=== PATIENT | male | born 1950 | race Caucasian/White ===

== ENCOUNTER 2017-10-07 03:36 | Emergency (ER) | payer MEDICARE ==
[2017-10-07 04:23] LABS: Basophils % (Auto) 0.3 % (0.0-1.8); Eosinophils % (Auto) 0.3 % (0.0-4.3); Hematocrit 43.8 % (35.5-45.6); Hemoglobin 14.5 gm/dl (11.8-15.2); Lymphocytes # (Auto) 1.8 K/mm3 (1.2-5.4); Lymphocytes % (Auto) 15.9 % (13.4-35.0); Mean Corpuscular HGB Conc 33 % (32-34); Mean Corpuscular Hemoglobin 30 pg (28-32); Mean Corpuscular Volume 91 fl (84-94); Monocytes # (Auto) 1.5 K/mm3 (0.0-0.8); Monocytes % (Auto) 13.5 % (0.0-7.3); Platelet Count 263 K/mm3 (140-440)
[2017-10-07 04:37] LABS: BUN/Creatinine Ratio 21; Blood Urea Nitrogen 15 mg/dL (9-20); Calcium 9.8 mg/dL (8.4-10.2); Hemolysis Index 12
[2017-10-07 04:43] LABS: Bilirubin,Urine NEG (Negative); Blood,Urine NEG (Negative); Color,Urine Yellow (Yellow); Nitrite,Urine NEG (Negative); Urobilinogen,Urine < 2.0 mg/dL (<2.0)
[2017-10-07 04:57] LABS: Amphetamine Screen,Urine PRESUMPTIVE NEGATIVE; Benzodiazepines Screen,Urine PRESUMPTIVE NEGATIVE; Cannabinoid Screen,Urine PRESUMPTIVE NEGATIVE; Cocaine Screen,Urine PRESUMPTIVE NEGATIVE; Methadone Screen,Urine PRESUMPTIVE NEGATIVE; Opiate Screen,Urine PRESUMPTIVE NEGATIVE
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
--- NOTE | 2017-10-07 06:19 | Cat Scan Report ---
FINAL REPORT EXAM: CT HEAD/BRAIN WO CON HISTORY: AMS TECHNIQUE: CT imaging acquired through the head without intravenous contrast. Transaxial reformations are provided. PRIORS: 03/14/2012 FINDINGS: The ventricles, cisterns and sulci are within normal limits. No intraparenchymal or extra-axial mass, hemorrhage, or mass effect. Valenzuela and white-matter differentiation is within normal limits for patient age. Normal spherical shape of the globes. No significant abnormality involving the imaged portions of the paranasal sinuses and mastoid air cells. No skull or facial fracture visualized. IMPRESSION: No acute intracranial abnormality.
--- NOTE | 2017-10-07 06:33 | Emergency Department Report ---
Blank Doc - Documentation Documentation: I was asked by my colleague, Dr. Coon, to follow-up on the patient's CT scan of the head. The sign out I got was that if the CT of the head is unremarkable with the patient is set up to do inpatient psychiatric treatment. The CT results do show no acute process. There is no bleed, shift, mass, ischemia.
--- NOTE | 2017-10-07 12:32 | Consultation ---
History of Present Illness - Reason for Consult Consult date: 10/07/17 Reason for consult: Mental Health Evaluation Requesting physician: DAMASO ROBERTS - Chief Complaint Chief complaint: "They are eating my brain" - History of Present Psychiatric Illness Patient is 67 years old [place] male presented to the ER stating that people are eating his brain. Today patient is calm, but anxious during the assessment. He stated that [place] people are eating his brain and yelling in his ear. He stated having this a problem for a "very long time." He stated that he was seeing a psychiatrist and took medication in the past. He stated that he cannot sleep because of the voices he hear. The patient was able to tell me his and his current address. He denies SI/HI's and VH's. He denies recreational drug use and alcohol consumption (etoh). Medications and Allergies Allergies Allergy/AdvReac Type Severity Reaction Status Date / Time No Known Allergies Allergy Unverified 10/07/17 03:55 Home Medications Medication Instructions Recorded Confirmed Last Taken Type No Known Home Medications [No 10/07/17 10/07/17 Unknown History Reported Home Medications] Past psychiatric history - Past Medical History Past Medical History: No medical history Past Surgical History: No surgical history - past Psychiatric treatment and history Psych: Psychosis psychiatric treatment history: Patient stated seeing a psychiatrist in the past. Denies a fam psy hx. - Social History Social history: lives with family Mental Status Exam - Vital signs Last Vital Signs Temp 98.6 F 10/07/17 07:35 Pulse 85 10/07/17 07:35 Resp 17 10/07/17 07:50 BP 134/86 10/07/17 07:35 Pulse Ox 99 10/07/17 07:50 - Exam Narrative exam: MSE: Appearance: calm, cooperative Behavior: regular eye contact Speech: regular rate and tone Mood: anxious Affect: congruent to mood Thought Process: tangential Thought Content: denies SI/HI's and VH's, delusional, paranoid Motor Activity: ambulatory Cognition: A/O x3 Insight: poor Judgment: poor Results Result Diagrams: 10/07/17 04:06 10/07/17 04:06 Abnormal lab results 10/07/17 10/07/17 10/07/17 Range/Units 04:06 04:06 04:25 WBC 11.1 H (4.5-11.0) K/mm3 RDW 13.0 L (13.2-15.2) % [place] % (Auto) 13.5 H (0.0-7.3) % [place] # 1.5 H (0.0-0.8) K/mm3 Seg Neutrophils # 7.8 H (1.8-7.7) K/mm3 Sodium 132 L (137-145) mmol/L Chloride 92.4 L (98-107) mmol/L Creatinine 0.7 L (0.8-1.5) mg/dL Glucose 326 H (75-100) mg/dL POC Glucose (70-105) Ur Specific [place] 1.036 H (1.003-1.030) 10/07/17 Range/Units 06:09 WBC (4.5-11.0) K/mm3 RDW (13.2-15.2) % [place] % (Auto) (0.0-7.3) % [place] # (0.0-0.8) K/mm3 Seg Neutrophils # (1.8-7.7) K/mm3 Sodium (137-145) mmol/L Chloride (98-107) mmol/L Creatinine (0.8-1.5) mg/dL Glucose (75-100) mg/dL POC Glucose 259 H (70-105) Ur Specific [place] (1.003-1.030) All other labs normal. Assessment and Plan Assessment and plan: Impression: Unspecified Psychosis. Today patient is calm, but anxious during the assessment. The patient experiencing perceptional disturbances DDx: Schizophrenia Paranoid Type Recommendation/Plan: Continue 1013 with placement to inpatient psy services. Start Zyprexa 5 mg PO HS for psychosis. Discusses the possible metabolic side effects of Zyprexa with patient.
[2017-10-08] MEDS ORDERED: GEODON IM ONE (08:04)
--- NOTE | 2017-10-08 19:07 | Progress Note ---
Subjective - Reason for Consult Reason for consult: Psych consult - Chief Complaint Chief complaint: 67 year old male. The patient continues to note that the others are trying to eat his brain. He is still making gestures towards his head when describing what others are doing to him. He denies any SI/HI. He notes that he is tolerating the medications and is patient waiting for inpt admission. Mental Status Exam - Vital signs Last Vital Signs Temp 98.1 F 10/08/17 07:20 Pulse 83 10/08/17 07:20 Resp 18 10/08/17 07:20 BP 153/100 10/08/17 07:20 Pulse Ox 97 10/08/17 07:20 - Exam Orientation: time, place, person Affect: normal Mood: anxious Thought content: delusions, paranoia Thought Process: Disorganized Perceptions: hallucinations Speech: other Concentration: distractible Motor activity: normal Level of consciousness: alert Memory: Intact Interaction: cooperative Assessment and Plan Assessment and Plan Assessment and plan: Impression: Unspecified Psychosis. Recommendation/Plan: Continue 1013 with placement to inpatient psy services. Continue Zyprexa 5 mg PO HS for psychosis.
[2017-10-08 23:02] VITALS: BP 142/77
== END 2017-10-08 23:04 ==
LOC: ED 03:36
DX: F23 Brief psychotic disorder (principal); F22 Delusional disorders
CPT/HCPCS: 36415; 70450; 80048; 80307; 81001; 82962; 83036; 85025; 93005; 93010; 96372; 99285; G0480; J3486; 80320; J1815

== ENCOUNTER 2018-07-18 15:52 | Emergency (ER) | payer MEDICARE ==
[2018-07-18 16:33] LABS: Bilirubin,Urine NEG (Negative); Blood,Urine NEG (Negative); Color,Urine Colorless (Yellow); Protein,Urine <15 mg/dL mg/dL (Negative); Urobilinogen,Urine < 2.0 mg/dL (<2.0); WBC,Urine < 1.0 /HPF (0.0-6.0)
[2018-07-18 16:35] LABS: Basophils # (Auto) 0.1 K/mm3 (0.0-0.1); Basophils % (Auto) 0.7 % (0.0-1.8); Eosinophils % (Auto) 0.5 % (0.0-4.3); Hematocrit 38.6 % (35.5-45.6); Hemoglobin 13.8 gm/dl (11.8-15.2); Lymphocytes # (Auto) 2.8 K/mm3 (1.2-5.4); Lymphocytes % (Auto) 27.6 % (13.4-35.0); Mean Corpuscular HGB Conc 36 % (32-34); Mean Corpuscular Hemoglobin 31 pg (28-32); Mean Corpuscular Volume 88 fl (84-94); Monocytes # (Auto) 0.9 K/mm3 (0.0-0.8); Platelet Count 258 K/mm3 (140-440); Red Cell Distribution Width 12.9 % (13.2-15.2)
[2018-07-18 16:46] LABS: Amphetamine Screen,Urine PRESUMPTIVE NEGATIVE; Benzodiazepines Screen,Urine PRESUMPTIVE NEGATIVE; Cannabinoid Screen,Urine PRESUMPTIVE NEGATIVE; Cocaine Screen,Urine PRESUMPTIVE NEGATIVE; Methadone Screen,Urine PRESUMPTIVE NEGATIVE; Opiate Screen,Urine PRESUMPTIVE NEGATIVE
[2018-07-18 16:57] LABS: BUN/Creatinine Ratio 12; Blood Urea Nitrogen 7 mg/dL (9-20); Calcium 9.1 mg/dL (8.4-10.2); Hemolysis Index 15
[2018-07-18] MEDS ORDERED: NACL 0.9% 1000 ML 1,000 ML IV ONE ×2 (17:47→19:27)
[2018-07-18] MEDS ORDERED: NORVASC PO ONE (18:04)
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
[2018-07-18 22:45] LABS: BUN/Creatinine Ratio 14; Blood Urea Nitrogen 7 mg/dL (9-20); Hemolysis Index 3
[2018-07-18] MEDS ORDERED: GLUCOPHAGE PO ONE ×2 (23:43→23:44)
[2018-07-18] MEDS ORDERED: K-DUR PO ONE (23:45)
[2018-07-19] MEDS: GLUCOPHAGE PO SCH ×2 (08:30→17:32)
[2018-07-19] MEDS ORDERED: NORVASC PO SCH (10:00)
[2018-07-19 20:47] VITALS: BP 141/92
== END 2018-07-19 21:35 ==
LOC: ED 15:52
DX: F23 Brief psychotic disorder (principal); I10 Essential (primary) hypertension; E11.9 Type 2 diabetes mellitus without complications
CPT/HCPCS: 36415; 80048; 80307; 81001; 82962; 85025; 93005; 93010; 99285; G0480; J7030; 80320

== ENCOUNTER 2018-10-30 21:23 | Emergency (ER) | payer MEDICARE ==
--- NOTE | 2018-10-30 22:12 | Emergency Department Report ---
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 Patient states that he has no suicidal or homicidal ideation. The patient states that he doesn't have a psychiatrist and denies taking any drugs. She denies being in any pain. - Related Data Home Medications Medication Instructions Recorded Confirmed Last Taken traZODone 600 mg PO HS 10/30/18 10/30/18 Unknown Allergies Allergy/AdvReac Type Severity Reaction Status Date / Time No Known Allergies Allergy Verified 07/18/18 15:58 ED Review of Systems ROS: Stated complaint: MH EVAL Other details as noted in HPI Constitutional: denies: chills, fever Eyes: denies: eye pain, eye discharge, vision change ENT: denies: ear pain, throat pain Respiratory: denies: cough, shortness of breath, wheezing Cardiovascular: denies: chest pain, palpitations Endocrine: no symptoms reported Gastrointestinal: denies: abdominal pain, nausea, diarrhea Genitourinary: denies: urgency, dysuria Musculoskeletal: denies: back pain, joint swelling, arthralgia Skin: denies: rash, lesions Neurological: denies: headache, weakness, paresthesias Psychiatric: as per HPI, auditory hallucinations. denies: anxiety, depression, homicidal thoughts, suicidal thoughts Hematological/Lymphatic: denies: easy bleeding, easy bruising ED Past Medical Hx - Past Medical History Hx Hypertension: Yes Hx Psychiatric Treatment: Yes (Paranoid) - Social History Smoking Status: Never Smoker Substance Use Type: None - Medications Home Medications: Home Medications Medication Instructions Recorded Confirmed Last Taken Type traZODone 600 mg PO 10/30/18 10/30/18 Unknown History ED Physical Exam - General Limitations: No Limitations General appearance: alert, in no apparent distress - Head Head exam: Present: atraumatic, normocephalic - Eye Eye exam: Present: normal appearance - ENT ENT exam: Present: mucous membranes moist - Neck Neck exam: Present: normal inspection - Respiratory Respiratory exam: Present: normal lung sounds bilaterally. Absent: respiratory distress - Cardiovascular Cardiovascular Exam: Present: regular rate, normal rhythm. Absent: systolic murmur, diastolic murmur, rubs, gallop - GI/Abdominal GI/Abdominal exam: Present: soft, normal bowel sounds - Rectal Rectal exam: Present: deferred - Extremities Exam Extremities exam: Present: normal inspection - Back Exam Back exam: Present: normal inspection - Neurological Exam Neurological exam: Present: alert, oriented X3 - Psychiatric Psychiatric exam: Present: agitated, other (audittory halucinations ) - Skin Skin exam: Present: warm, dry, intact, normal color. Absent: rash ED Course Vital Signs 10/30/18 10/30/18 10/31/18 21:41 21:51 03:57 Temperature 99.4 F 98.5 F 97.6 F Pulse Rate 89 86 72 Respiratory 18 18 18 Rate Blood Pressure 160/104 Blood Pressure 143/86 142/88 [Left] O2 Sat by Pulse 98 96 98 Oximetry ED Medical Decision Making - Lab Data Result diagrams: 10/30/18 22:00 10/30/18 23:48 Lab Results 10/30/18 10/30/18 10/30/18 Range/Units 22:00 22:00 22:00 WBC (4.5-11.0) K/mm3 RBC (3.65-5.03) M/mm3 Hgb (11.8-15.2) gm/dl Hct (35.5-45.6) % MCV (84-94) fl MCH (28-32) pg MCHC (32-34) % RDW (13.2-15.2) % Plt Count (140-440) K/mm3 Lymph % (Auto) (13.4-35.0) % Meagher % (Auto) (0.0-7.3) % Eos % (Auto) (0.0-4.3) % Baso % (Auto) (0.0-1.8) % Lymph # (1.2-5.4) K/mm3 Meagher # (0.0-0.8) K/mm3 Eos # (0.0-0.4) K/mm3 Baso # (0.0-0.1) K/mm3 Seg Neutrophils % (40.0-70.0) % Seg Neutrophils # (1.8-7.7) K/mm3 Sodium 128 L (137-145) mmol/L Potassium 3.7 (3.6-5.0) mmol/L Chloride 93.1 L (98-107) mmol/L Carbon Dioxide 21 L (22-30) mmol/L Anion Gap 18 mmol/L BUN 9 (9-20) mg/dL Creatinine 0.6 L (0.8-1.5) mg/dL Estimated GFR > 60 ml/min BUN/Creatinine Ratio 15 % Glucose 533 H* (75-100) mg/dL POC Glucose (70-105) Calcium 8.6 (8.4-10.2) mg/dL Urine Color (Yellow) Urine Turbidity (Clear) Urine pH (5.0-7.0) Ur Specific Mclean (1.003-1.030) Urine Protein (Negative) mg/dL Urine Glucose (UA) (Negative) mg/dL Urine Ketones (Negative) mg/dL Urine Blood (Negative) Urine Nitrite (Negative) Urine Bilirubin (Negative) Urine Urobilinogen (<2.0) mg/dL Ur Leukocyte Esterase (Negative) Urine WBC (Auto) (0.0-6.0) /HPF Urine RBC (Auto) (0.0-6.0) /HPF U Epithel Cells (Auto) (0-13.0) /HPF Urine Mucus /HPF Salicylates < 0.3 L (2.8-20.0) mg/dL Urine Opiates Screen Urine Methadone Screen Acetaminophen < 5.0 L (10.0-30.0) ug/mL Ur Barbiturates Screen Ur Phencyclidine Scrn Ur Amphetamines Screen U Benzodiazepines Scrn Urine Cocaine Screen U Marijuana (THC) Screen Drugs of Abuse Note Plasma/Serum Alcohol (0-0.07) % 10/30/18 10/30/18 10/30/18 Range/Units 22:00 22:00 22:46 WBC 7.1 (4.5-11.0) K/mm3 RBC 4.47 (3.65-5.03) M/mm3 Hgb 13.6 (11.8-15.2) gm/dl Hct 39.8 (35.5-45.6) % MCV 89 (84-94) fl MCH 30 (28-32) pg MCHC 34 (32-34) % RDW 12.6 L (13.2-15.2) % Plt Count 255 (140-440) K/mm3 Lymph % (Auto) 28.0 (13.4-35.0) % Meagher % (Auto) 13.3 H (0.0-7.3) % Eos % (Auto) 0.9 (0.0-4.3) % Baso % (Auto) 0.5 (0.0-1.8) % Lymph # 2.0 (1.2-5.4) K/mm3 Meagher # 0.9 H (0.0-0.8) K/mm3 Eos # 0.1 (0.0-0.4) K/mm3 Baso # 0.0 (0.0-0.1) K/mm3 Seg Neutrophils % 57.3 (40.0-70.0) % Seg Neutrophils # 4.0 (1.8-7.7) K/mm3 Sodium (137-145) mmol/L Potassium (3.6-5.0) mmol/L Chloride (98-107) mmol/L Carbon Dioxide (22-30) mmol/L Anion Gap mmol/L BUN (9-20) mg/dL Creatinine (0.8-1.5) mg/dL Estimated GFR ml/min BUN/Creatinine Ratio % Glucose (75-100) mg/dL POC Glucose (70-105) Calcium (8.4-10.2) mg/dL Urine Color Colorless (Yellow) Urine Turbidity Clear (Clear) Urine pH 7.0 (5.0-7.0) Ur Specific Mclean 1.029 (1.003-1.030) Urine Protein <15 mg/dl (Negative) mg/dL Urine Glucose (UA) >=500 (Negative) mg/dL Urine Ketones Tr (Negative) mg/dL Urine Blood Neg (Negative) Urine Nitrite Neg (Negative) Urine Bilirubin Neg (Negative) Urine Urobilinogen < 2.0 (<2.0) mg/dL Ur Leukocyte Esterase Neg (Negative) Urine WBC (Auto) < 1.0 (0.0-6.0) /HPF Urine RBC (Auto) 1.0 (0.0-6.0) /HPF U Epithel Cells (Auto) < 1.0 (0-13.0) /HPF Urine Mucus Few /HPF Salicylates (2.8-20.0) mg/dL Urine Opiates Screen Urine Methadone Screen Acetaminophen (10.0-30.0) ug/mL Ur Barbiturates Screen Ur Phencyclidine Scrn Ur Amphetamines Screen U Benzodiazepines Scrn Urine Cocaine Screen U Marijuana (THC) Screen Drugs of Abuse Note Plasma/Serum Alcohol < 0.01 (0-0.07) % 10/30/18 10/30/18 10/30/18 Range/Units 22:46 23:36 23:48 WBC (4.5-11.0) K/mm3 RBC (3.65-5.03) M/mm3 Hgb (11.8-15.2) gm/dl Hct (35.5-45.6) % MCV (84-94) fl MCH (28-32) pg MCHC (32-34) % RDW (13.2-15.2) % Plt Count (140-440) K/mm3 Lymph % (Auto) (13.4-35.0) % Meagher % (Auto) (0.0-7.3) % Eos % (Auto) (0.0-4.3) % Baso % (Auto) (0.0-1.8) % Lymph # (1.2-5.4) K/mm3 Meagher # (0.0-0.8) K/mm3 Eos # (0.0-0.4) K/mm3 Baso # (0.0-0.1) K/mm3 Seg Neutrophils % (40.0-70.0) % Seg Neutrophils # (1.8-7.7) K/mm3 Sodium (137-145) mmol/L Potassium (3.6-5.0) mmol/L Chloride (98-107) mmol/L Carbon Dioxide (22-30) mmol/L Anion Gap mmol/L BUN (9-20) mg/dL Creatinine (0.8-1.5) mg/dL Estimated GFR ml/min BUN/Creatinine Ratio % Glucose 304 H (75-100) mg/dL POC Glucose 347 H (70-105) Calcium (8.4-10.2) mg/dL Urine Color (Yellow) Urine Turbidity (Clear) Urine pH (5.0-7.0) Ur Specific Mclean (1.003-1.030) Urine Protein (Negative) mg/dL Urine Glucose (UA) (Negative) mg/dL Urine Ketones (Negative) mg/dL Urine Blood (Negative) Urine Nitrite (Negative) Urine Bilirubin (Negative) Urine Urobilinogen (<2.0) mg/dL Ur Leukocyte Esterase (Negative) Urine WBC (Auto) (0.0-6.0) /HPF Urine RBC (Auto) (0.0-6.0) /HPF U Epithel Cells (Auto) (0-13.0) /HPF Urine Mucus /HPF Salicylates (2.8-20.0) mg/dL Urine Opiates Screen Presumptive negative Urine Methadone Screen Presumptive negative Acetaminophen (10.0-30.0) ug/mL Ur Barbiturates Screen Presumptive negative Ur Phencyclidine Scrn Presumptive negative Ur Amphetamines Screen Presumptive negative U Benzodiazepines Scrn Presumptive negative Urine Cocaine Screen Presumptive negative U Marijuana (THC) Screen Presumptive negative Drugs of Abuse Note Disclamer Plasma/Serum Alcohol (0-0.07) % 10/31/18 Range/Units 02:25 WBC (4.5-11.0) K/mm3 RBC (3.65-5.03) M/mm3 Hgb (11.8-15.2) gm/dl Hct (35.5-45.6) % MCV (84-94) fl MCH (28-32) pg MCHC (32-34) % RDW (13.2-15.2) % Plt Count (140-440) K/mm3 Lymph % (Auto) (13.4-35.0) % Meagher % (Auto) (0.0-7.3) % Eos % (Auto) (0.0-4.3) % Baso % (Auto) (0.0-1.8) % Lymph # (1.2-5.4) K/mm3 Meagher # (0.0-0.8) K/mm3 Eos # (0.0-0.4) K/mm3 Baso # (0.0-0.1) K/mm3 Seg Neutrophils % (40.0-70.0) % Seg Neutrophils # (1.8-7.7) K/mm3 Sodium (137-145) mmol/L Potassium (3.6-5.0) mmol/L Chloride (98-107) mmol/L Carbon Dioxide (22-30) mmol/L Anion Gap mmol/L BUN (9-20) mg/dL Creatinine (0.8-1.5) mg/dL Estimated GFR ml/min BUN/Creatinine Ratio % Glucose (75-100) mg/dL POC Glucose 75 (70-105) Calcium (8.4-10.2) mg/dL Urine Color (Yellow) Urine Turbidity (Clear) Urine pH (5.0-7.0) Ur Specific Mclean (1.003-1.030) Urine Protein (Negative) mg/dL Urine Glucose (UA) (Negative) mg/dL Urine Ketones (Negative) mg/dL Urine Blood (Negative) Urine Nitrite (Negative) Urine Bilirubin (Negative) Urine Urobilinogen (<2.0) mg/dL Ur Leukocyte Esterase (Negative) Urine WBC (Auto) (0.0-6.0) /HPF Urine RBC (Auto) (0.0-6.0) /HPF U Epithel Cells (Auto) (0-13.0) /HPF Urine Mucus /HPF Salicylates (2.8-20.0) mg/dL Urine Opiates Screen Urine Methadone Screen Acetaminophen (10.0-30.0) ug/mL Ur Barbiturates Screen Ur Phencyclidine Scrn Ur Amphetamines Screen U Benzodiazepines Scrn Urine Cocaine Screen U Marijuana (THC) Screen Drugs of Abuse Note Plasma/Serum Alcohol (0-0.07) % - Medical Decision Making Chief medical diagnosis: Psychosis Differential diagnosis: Schizophrenia, substance induced psychosis next CBC BMP also on 1013 of a urine drug screen and urinalysis and I will have patient be evaluated by mental health systems support specialist A she had some hyperglycemia that is now controlled patient has been medically cleared. Critical care attestation.: If time is entered above; I have spent that time in minutes in the direct care of this critically ill patient, excluding procedure time. ED Disposition Clinical Impression: Hyperglycemia Psychosis Qualifiers: Psychosis type: unspecified psychosis type Qualified Code(s): F29 - Unspecified psychosis not due to a substance or known physiological condition Disposition: DC/TX-65 PSY HOSP/PSY UNIT Is pt being admited?: No Does the pt Need Aspirin: No Condition: Stable Referrals: KIN HICKMAN MD [Primary Care Provider] - 3-5 Days
[2018-10-30 22:15] LABS: Basophils % (Auto) 0.5 % (0.0-1.8); Eosinophils # (Auto) 0.1 K/mm3 (0.0-0.4); Eosinophils % (Auto) 0.9 % (0.0-4.3); Hematocrit 39.8 % (35.5-45.6); Hemoglobin 13.6 gm/dl (11.8-15.2); Mean Corpuscular HGB Conc 34 % (32-34); Mean Corpuscular Volume 89 fl (84-94); Monocytes # (Auto) 0.9 K/mm3 (0.0-0.8); Monocytes % (Auto) 13.3 % (0.0-7.3); Platelet Count 255 K/mm3 (140-440); Red Blood Count 4.47 M/mm3 (3.65-5.03); Red Cell Distribution Width 12.6 % (13.2-15.2)
[2018-10-30 22:39] LABS: BUN/Creatinine Ratio 15; Blood Urea Nitrogen 9 mg/dL (9-20); Calcium 8.6 mg/dL (8.4-10.2); Hemolysis Index 2
[2018-10-30] MEDS ORDERED: HumuLIN R IV ONE (23:01)
[2018-10-30] MEDS ORDERED: NACL 0.9% 1000 ML 1,000 ML IV ONE ×2 (23:01→23:02)
[2018-10-30 23:19] LABS: Bilirubin,Urine NEG (Negative); Blood,Urine NEG (Negative); Color,Urine Colorless (Yellow); Mucus,Urine FEW /HPF; Protein,Urine <15 mg/dL mg/dL (Negative); Urobilinogen,Urine < 2.0 mg/dL (<2.0)
[2018-10-30 23:26] LABS: Amphetamine Screen,Urine PRESUMPTIVE NEGATIVE; Benzodiazepines Screen,Urine PRESUMPTIVE NEGATIVE; Cannabinoid Screen,Urine PRESUMPTIVE NEGATIVE; Cocaine Screen,Urine PRESUMPTIVE NEGATIVE; Methadone Screen,Urine PRESUMPTIVE NEGATIVE; Opiate Screen,Urine PRESUMPTIVE NEGATIVE
[2018-10-30 23:28] LABS: WBC,Urine < 1.0 /HPF (0.0-6.0)
[2018-10-31] MEDS ORDERED: D50W (25GM) Syringe IV PRN (07:02)
[2018-10-31] MEDS: HumuLIN R SUB-Q SCH ×4 (08:54→22:23)
[2018-10-31 10:02] LABS: Alanine Aminotransferase 22 units/L (7-56); Albumin 3.7 g/dL (3.9-5); BUN/Creatinine Ratio 12; Blood Urea Nitrogen 6 mg/dL (9-20); Calcium 8.2 mg/dL (8.4-10.2); Hemolysis Index 9
[2018-10-31 10:07] LABS: Bilirubin,Direct < 0.2 mg/dL (0-0.2)
[2018-10-31 13:14] LABS: BUN/Creatinine Ratio 14; Blood Urea Nitrogen 10 mg/dL (9-20); Hemolysis Index 10
[2018-10-31] MEDS ORDERED: NACL 0.9% 500 ML 1,000 ML IV ONE (15:52)
[2018-10-31] MEDS ORDERED: DESYREL PO ONE (21:48)
[2018-10-31] MEDS ORDERED: LANTUS SUB-Q SCH (22:00)
[2018-10-31] MEDS ORDERED: DESYREL PO SCH ×2 (22:00)
[2018-11-01 06:11] LABS: BUN/Creatinine Ratio 18; Blood Urea Nitrogen 11 mg/dL (9-20); Calcium 8.7 mg/dL (8.4-10.2); Hemolysis Index 10
[2018-11-01] MEDS: HumuLIN R SUB-Q SCH ×2 (09:30→13:05)
[2018-11-01 13:44] VITALS: BP 124/76
== END 2018-11-01 14:18 ==
LOC: ED 21:23 → EEVIPCON 21:23 → ED 11-01 14:18
DX: F29 Unspecified psychosis not due to a substance or known physiological condition (principal); R73.9 Hyperglycemia, unspecified; I10 Essential (primary) hypertension; F60.0 Paranoid personality disorder
CPT/HCPCS: 36415; 80048; 80076; 80307; 81001; 82010; 82805; 82947; 82962; 84484; 85025; 96372; 96374; 99285; G0480; J7030; 80320; J1815

== ENCOUNTER 2018-11-17 10:40 | Outpatient (CLI) | payer MEDICARE ==
--- NOTE | 2018-11-17 13:53 | Magnetic Resonance Report ---
MRI OF THE BRAIN WITHOUT CONTRAST: HISTORY: Psychosis PROCEDURE: Multiplanar, multisequence MR imaging of the brain without IV contrast was performed. FINDINGS: Mild nonspecific chronic white matter changes are identified most consistent with chronic small vessel disease. Otherwise, the brain parenchyma signal intensity and its august white interface are within normal limits on all sequences. No evidence for acute ischemia, hemorrhage or mass. No chronic infarct or extra-axial fluid collection. The midline structures are central. The basal cisterns are patent. Normal ventricular size. The orbital cavities and sella turcica demonstrate no abnormality. Moderate mucosal thickening is noted throughout the maxillary and ethmoid sinuses. The remaining sinuses and mastoid air cells are adequately aerated. IMPRESSION: Nonspecific chronic white matter changes which are likely appropriate for this persons age. Essentially normal exam for age. Chronic sinus disease.
== END 2018-11-17 10:41 | disposition home or self-care (01) ==
LOC: MRI 10:40
PROVIDERS: ATTEND Student in an Organized Health Care Education/Training Program
DX: J32.9 Chronic sinusitis, unspecified (principal); R90.82 White matter disease, unspecified; I10 Essential (primary) hypertension
CPT/HCPCS: 70551

== ENCOUNTER 2020-10-11 13:39 | Emergency (ER) | payer MEDICARE ==
[2020-10-11 15:29] LABS: Basophils % (Auto) 0.4 % (0.0-1.8); Eosinophils % (Auto) 0.1 % (0.0-4.3); Hematocrit 36.8 % (35.5-45.6); Hemoglobin 13.1 gm/dl (11.8-15.2); Lymphocytes # (Auto) 1.7 K/mm3 (1.2-5.4); Lymphocytes % (Auto) 17.3 % (13.4-35.0); Mean Corpuscular HGB Conc 36 % (32-34); Mean Corpuscular Volume 88 fl (84-94); Monocytes # (Auto) 0.9 K/mm3 (0.0-0.8); Monocytes % (Auto) 9.4 % (0.0-7.3); Platelet Count 296 K/mm3 (140-440); Red Blood Count 4.19 M/mm3 (3.65-5.03)
[2020-10-11 15:47] LABS: Blood Urea Nitrogen 14 mg/dL (9-20); Calcium 9.4 mg/dL (8.4-10.2); Hemolysis Index 19
[2020-10-11 15:53] LABS: BUN/Creatinine Ratio 23
[2020-10-11 21:10] LABS: Bilirubin,Urine NEG (Negative); Blood,Urine NEG (Negative); Color,Urine Yellow (Yellow); Urobilinogen,Urine < 2.0 mg/dL (<2.0)
[2020-10-11 21:36] LABS: Amphetamine Screen,Urine PRESUMPTIVE NEGATIVE; Benzodiazepines Screen,Urine PRESUMPTIVE NEGATIVE
[2020-10-11 21:37] LABS: Cannabinoid Screen,Urine PRESUMPTIVE NEGATIVE; Cocaine Screen,Urine PRESUMPTIVE NEGATIVE; Methadone Screen,Urine PRESUMPTIVE NEGATIVE; Opiate Screen,Urine PRESUMPTIVE NEGATIVE
--- NOTE | 2020-10-11 22:25 | Emergency Department Report ---
ED Psych HPI - General Chief Complaint: Psych Stated Complaint: HEADACHE Time Seen by Provider: 10/11/20 20:44 Source: patient Mode of arrival: Ambulatory - History of Present Illness Initial Comments: Patient is a 70-year-old male from a [facility]it[facility] who presents with hearing voices that are threatening him. He also states that bugs are crawling in his brain. Patient states that he has no suicidal or homicidal ideation. The patient has had prior psych admission for similar symptoms. denies taking any drugs. he denies being in any pain. - Related Data Home Medications Medication Instructions Recorded Confirmed Last Taken traZODone 600 mg PO HS 10/30/18 10/30/18 Unknown Allergies Allergy/AdvReac Type Severity Reaction Status Date / Time No Known Allergies Allergy Verified 10/11/20 14:10 ED Review of Systems ROS: Stated complaint: HEADACHE Other details as noted in HPI Constitutional: denies: chills, fever Eyes: denies: eye pain, eye discharge, vision change ENT: denies: ear pain, throat pain Respiratory: denies: cough, shortness of breath, wheezing Cardiovascular: denies: chest pain, palpitations Endocrine: no symptoms reported Gastrointestinal: denies: abdominal pain, nausea, diarrhea Genitourinary: denies: urgency, dysuria Musculoskeletal: denies: back pain, joint swelling, arthralgia Skin: denies: rash, lesions Neurological: denies: headache, weakness, paresthesias Psychiatric: anxiety, auditory hallucinations, visual hallucinations. denies: depression Hematological/Lymphatic: denies: easy bleeding, easy bruising ED Past Medical Hx - Past Medical History Hx Hypertension: Yes Hx Psychiatric Treatment: Yes (Paranoid) - Social History Smoking Status: Unknown if ever smoked Substance Use Type: Alcohol - Medications Home Medications: Home Medications Medication Instructions Recorded Confirmed Last Taken Type traZODone 600 mg PO HS 10/30/18 10/30/18 Unknown History ED Physical Exam - General Limitations: Language Barrier General appearance: alert, in no apparent distress - Head Head exam: Present: atraumatic, normocephalic - Eye Eye exam: Present: normal appearance - ENT ENT exam: Present: mucous membranes moist - Neck Neck exam: Present: normal inspection - Respiratory Respiratory exam: Present: normal lung sounds bilaterally. Absent: respiratory distress - Cardiovascular Cardiovascular Exam: Present: regular rate, normal rhythm. Absent: systolic murmur, diastolic murmur, rubs, gallop - GI/Abdominal GI/Abdominal exam: Present: soft, normal bowel sounds - Rectal Rectal exam: Present: deferred - Extremities Exam Extremities exam: Present: normal inspection - Back Exam Back exam: Present: normal inspection - Neurological Exam Neurological exam: Present: alert, oriented X3 - Psychiatric Psychiatric exam: Present: depressed, anxious, flat affect - Skin Skin exam: Present: warm, dry, intact, normal color. Absent: rash ED Course Vital Signs 10/11/20 10/11/20 10/11/20 14:13 16:15 20:45 Temperature 99.6 F 98.4 F 98.3 F Pulse Rate 70 69 68 Respiratory 18 20 18 Rate Blood Pressure 172/86 Blood Pressure 182/82 122/86 [Right] O2 Sat by Pulse 93 96 96 Oximetry 10/12/20 01:00 Temperature 98.3 F Pulse Rate 66 Respiratory 18 Rate Blood Pressure Blood Pressure 120/81 [Right] O2 Sat by Pulse 97 Oximetry ED Medical Decision Making - Lab Data Result diagrams: 10/11/20 15:04 10/11/20 15:04 - Medical Decision Making psych wants covid testing, if negative will be admitted to psych at [facility]. they state that 1013 is not needed. Critical care attestation.: If time is entered above; I have spent that time in minutes in the direct care of this critically ill patient, excluding procedure time. ED Disposition Clinical Impression: Acute psychosis Disposition: DC/TX-65 PSY HOSP/PSY UNIT Is pt being admited?: No Does the pt Need Aspirin: No Condition: Stable Referrals: RAYMOND MURPHY MD [Primary Care Provider] - 3-5 Days
[2020-10-11] MEDS ORDERED: BENZTROPINE 1 MG TAB PO ONE (22:38)
[2020-10-11] MEDS ORDERED: HALOPERIDOL 5 MG TAB PO ONE (22:38)
--- NOTE | 2020-10-12 08:43 | Consultation ---
History of Present Illness - Reason for Consult Consult date: 10/12/20 Reason for consult: MHE Requesting physician: VIVIAN HEREDIA - History of Present Psychiatric Illness Per ED Provider: Patient is a 70-year-old male from a intermediate who presents with hearing voices that are threatening him. He also states that bugs are crawling in his brain. Patient states that he has no suicidal or homicidal ideation. The patient has had prior psych admission for similar symptoms. denies taking any drugs. he denies being in any pain. PSYCH HPI Patient is a 70-year-old unemployed currently on SSI, single agent male with unspecified psychiatric history who presented to the ED with chief complaint of auditory hallucination. Patient reported he has been hearing too much voices in his brain, and he feels that there are people in his brain eating his "brain meat". Patient reported the symptoms have been going on for months, but is beginning to be feeling very distressed and more tired about this, also complained of seeing 2 people in particular type plan to kill him by killing his brain first. Patient states that he does not have any family here to most of his family back home in [place]. PAST PSYCHIATRIC HISTORY Diagnoses:unspecified Suicide attempts or Self-harm behavior: none reported Prior psychiatric hospitalizations: none reported Substance Abuse history: none reported Previous psychiatric medications tried: unknown Outpatient treatment: none reported PAST MEDICAL HISTORY: none reported Family Psychiatric History: None reported or documented SOCIAL HISTORY Marital Status: single Living Arrangements: rent Employment Status: [employer] Access to guns/weapons: none reported Education: high school History of Abuse: none reported Legal History: none reported REVIEW OF SYSTEMS Constitutional: Negative for weight loss ENT: Negative for stridor Respiratory: Negative for cough or hemoptysis All other systems reviewed and are negative MENTAL STATUS EXAMINATION General Appearance and Behavior: Age appropriate, good hygiene, wearing appropriate clothes, good eye contact, cooperative polite with questioning. Cooperation: Participating/engaged Psychomotor Behavior: unremarkable and within normal limits Mood: distressed Affect and affective range: congruent with mood Thought Process: illogical Thought Content: hallucinations, paranoi and obsessions Speech: Normal volume, Regular rate and rhythm, Intellectual Functioning: Average Suicidal Ideation: Denies SI Homicidal Ideation: Denies HI Impulse Control: Unimpaired Insight and Judgment: impaired insight and judgment, Memory: Normal, Attention: Normal, Orientation: Alert, oriented, Diagnoses: Assessment and Plan - Psychiatric problem (1) Schizophrenia, paranoid Current Visit: Yes Status: Acute Treatment Plan Started on risperidone MEDICATIONS: Risks, benefits and alternatives of medications discussed with the patient, questions answered and consent obtained from patient. PSYCHOTHERAPY: Supportive psychotherapy provided MEDICAL: Per primary team DELIRIUM PRECAUTIONS: Please re-orient patient frequently, keep lights on during the day, and minimize benzodiazepines and opiates as these medications could worsen patient's confusion. CASTING MACHINE ADJUSTER: DISPOSITION: Do Not Recommend acute inpatient psychiatric hospitalization at this time. Case discussed with Dr. Negron who agrees with current disposition LEGAL STATUS: 1013 FOLLOW-UP: Will follow Thank you for the consult. Please contact with any questions and/or concerns. Medications and Allergies Allergies Allergy/AdvReac Type Severity Reaction Status Date / Time No Known Allergies Allergy Verified 10/11/20 14:10 Home Medications Medication Instructions Recorded Confirmed Last Taken Type traZODone 600 mg PO HS 10/30/18 10/12/20 Unknown History Mental Status Exam - Vital signs Last Vital Signs Temp 97.8 F 10/12/20 07:47 Pulse 84 10/12/20 07:47 Resp 20 10/12/20 07:47 BP 100/65 10/12/20 07:47 Pulse Ox 96 10/12/20 07:47 Results Result Diagrams: 10/11/20 15:04 10/11/20 15:04 Abnormal lab results 10/11/20 10/11/20 10/11/20 Range/Units 15:04 15:04 15:04 MCHC (32-34) % RDW (13.2-15.2) % [place] % (Auto) (0.0-7.3) % [place] # (Auto) (0.0-0.8) K/mm3 Seg Neutrophils % (40.0-70.0) % Sodium 124 L (137-145) mmol/L Chloride 88.3 L (98-107) mmol/L Creatinine 0.6 L (0.8-1.3) mg/dL Glucose 278 H (75-100) mg/dL Salicylates 0.4 L (2.8-20.0) mg/dL Acetaminophen 5.0 L (10.0-30.0) ug/mL 10/11/20 Range/Units 15:04 MCHC 36 H (32-34) % RDW 13.0 L (13.2-15.2) % [place] % (Auto) 9.4 H (0.0-7.3) % [place] # (Auto) 0.9 H (0.0-0.8) K/mm3 Seg Neutrophils % 72.8 H (40.0-70.0) % Sodium (137-145) mmol/L Chloride (98-107) mmol/L Creatinine (0.8-1.3) mg/dL Glucose (75-100) mg/dL Salicylates (2.8-20.0) mg/dL Acetaminophen (10.0-30.0) ug/mL All other labs normal. Assessment and Plan - Psychiatric problem (1) Schizophrenia, paranoid Current Visit: Yes Status: Acute
[2020-10-12] MEDS: risperiDONE 0.25 MG TAB PO SCH (10:52)
[2020-10-12 12:48] LABS: Blood Urea Nitrogen 15 mg/dL (9-20); Calcium 8.8 mg/dL (8.4-10.2); Hemolysis Index 122
[2020-10-12 12:49] LABS: BUN/Creatinine Ratio 21
[2020-10-12] MEDS ORDERED: SODIUM CHLORIDE 0.9% 1000 ML 1,000 ML IV ONE (16:08)
[2020-10-12] MEDS ORDERED: SODIUM CHLORIDE 0.9% 1000 ML 1,000 ML ONE (16:09)
--- NOTE | 2020-10-13 08:46 | Progress Note ---
Subjective - Reason for Consult Consult date: 10/13/20 Reason for consult: MHE Requesting physician: KODAK BARRAGAN - Chief Complaint Chief complaint: Psych Progress Patient seen this AM, patient reports still hearing voices, and tacticle sensations of his brain being eaten and also states he feels sad and worried but denies suicidal thoughts. Patient endorses medication compliance REVIEW OF SYSTEMS Constitutional: Negative for weight loss ENT: Negative for stridor Respiratory: Negative for cough or hemoptysis All other systems reviewed and are negative MENTAL STATUS EXAMINATION General Appearance and Behavior: Age appropriate, good hygiene, wearing appropriate clothes, good eye contact, cooperative polite with questioning. Cooperation: Participating/engaged Psychomotor Behavior: unremarkable and within normal limits Mood: distressed Affect and affective range: congruent with mood Thought Process: illogical Thought Content: hallucinations, paranoi and obsessions Speech: Normal volume, Regular rate and rhythm, Intellectual Functioning: Average Suicidal Ideation: Denies SI Homicidal Ideation: Denies HI Impulse Control: Unimpaired Insight and Judgment: impaired insight and judgment, Memory: Normal, Attention: Normal, Orientation: Alert, oriented, Diagnoses: Assessment and Plan - Psychiatric problem (1) Schizophrenia, paranoid Current Visit: Yes Status: Acute Treatment Plan Started on risperidone MEDICATIONS: Risks, benefits and alternatives of medications discussed with the patient, questions answered and consent obtained from patient. PSYCHOTHERAPY: Supportive psychotherapy provided MEDICAL: Per primary team DELIRIUM PRECAUTIONS: Please re-orient patient frequently, keep lights on during the day, and minimize benzodiazepines and opiates as these medications could worsen patient's confusion. MEDICAL TECHNOLOGIST HEMATOLOGY: DISPOSITION: Do Recommend acute inpatient psychiatric hospitalization at this time. Case discussed with Dr. Negron who agrees with current disposition LEGAL STATUS: 1013 FOLLOW-UP: Will follow Thank you for the consult. Please contact with any questions and/or concerns. Mental Status Exam - Vital signs Last Vital Signs Temp 98.3 F 10/12/20 20:17 Pulse 89 10/12/20 20:17 Resp 18 10/12/20 20:17 BP 122/72 10/12/20 20:17 Pulse Ox 96 10/12/20 20:17 Assessment and Plan - Patient Problems (1) Schizophrenia, paranoid Current Visit: Yes Status: Acute
[2020-10-13] MEDS: risperiDONE 0.25 MG TAB PO SCH ×2 (22:19→22:21)
[2020-10-13] MEDS ORDERED: MELATONIN 5 MG TAB PO PRN (22:34)
[2020-10-14] MEDS ORDERED: hydrOXYzine PAMOATE 25 MG CAP PO ONE (02:31)
[2020-10-14] MEDS ORDERED: ZIPRASIDONE MESYLATE 20 MG VIAL IM ONE (04:23)
[2020-10-14] MEDS ORDERED: WATER FOR INJ Sterile (PF) 10 ML ONE (04:45)
--- NOTE | 2020-10-14 08:43 | Progress Note ---
Subjective - Reason for Consult Consult date: 10/14/20 Reason for consult: hallucinations - Chief Complaint Chief complaint: Nurse note states the patient was noted swinging a part from his hospital as if he was fighting someone; pt still pacing and asking for something to help him sleep. During my interview with the patient, he is awake and confused. He says he is here because "something going on with my head." He also verbalizes "hearing things in my head." The patient is tapping his head as we are speaking. He denies SI/HI. REVIEW OF SYSTEMS Constitutional: Negative for weight loss ENT: Negative for stridor Respiratory: Negative for cough or hemoptysis All other systems reviewed and are negative MENTAL STATUS EXAMINATION General Appearance and Behavior: Age appropriate, good hygiene, wearing appropriate clothes, good eye contact, cooperative polite with questioning. Cooperation: Participating/engaged Psychomotor Behavior: unremarkable and within normal limits Mood: distressed Affect and affective range: congruent with mood Thought Process: illogical Thought Content: hallucinations, paranoi and obsessions Speech: Normal volume, Regular rate and rhythm, Intellectual Functioning: Average Suicidal Ideation: Denies SI Homicidal Ideation: Denies HI Impulse Control: Unimpaired Insight and Judgment: impaired insight and judgment, Memory: Normal, Attention: Normal, Orientation: Alert, oriented, Assessment and Plan (1) Schizophrenia, paranoid (F20.0) Current Visit: Yes Status: Acute Treatment Plan Klonopin 0.25mg po BID x 3 days Trazodone 50mg po qhs Risks, benefits and alternatives of medications discussed with the patient, questions answered and consent obtained from patient. PSYCHOTHERAPY: Supportive psychotherapy provided MEDICAL: Per primary team DELIRIUM PRECAUTIONS: Please re-orient patient frequently, keep lights on during the day, and minimize benzodiazepines and opiates as these medications could worsen patient's confusion. 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 Case discussed with Dr. Negron who agrees with current disposition LEGAL STATUS: 1013 FOLLOW-UP: Will follow Thank you for the consult. Please contact with any questions and/or concerns. Mental Status Exam - Vital signs Last Vital Signs Temp 97.8 F 10/14/20 02:15 Pulse 97 H 10/14/20 02:15 Resp 18 10/14/20 02:15 BP 138/84 10/14/20 02:15 Pulse Ox 96 10/14/20 02:15
[2020-10-14] MEDS: clonazePAM 0.5 MG TAB PO SCH ×2 (10:18→22:00)
[2020-10-14] MEDS: risperiDONE 0.25 MG TAB PO SCH ×4 (10:18→22:04)
[2020-10-14] MEDS ORDERED: metFORMIN 500 MG TAB PO ONE (13:29)
[2020-10-14] MEDS ORDERED: traZODone 50 MG TAB PO SCH (22:00)
--- NOTE | 2020-10-15 09:35 | Progress Note ---
Subjective - Reason for Consult Consult date: 10/15/20 Reason for consult: hallucinations - Chief Complaint Chief complaint: During my interview with the patient, he is awake and confused. He is standing at the window pointing out. The patient states he was looking a a man in a truck going by. When asked about hallucinations, he replies "a little bit." He starts rubbing his head and laughing inappropriately. The patient says mostly in my head." The patient denies SI/HI. REVIEW OF SYSTEMS Constitutional: Negative for weight loss ENT: Negative for stridor Respiratory: Negative for cough or hemoptysis All other systems reviewed and are negative MENTAL STATUS EXAMINATION General Appearance and Behavior: Age appropriate, good hygiene, wearing appropriate clothes, good eye contact, cooperative polite with questioning. Cooperation: Participating/engaged Psychomotor Behavior: unremarkable and within normal limits Mood: distressed Affect and affective range: congruent with mood Thought Process: illogical Thought Content: hallucinations, paranoi and obsessions Speech: Normal volume, Regular rate and rhythm, Intellectual Functioning: Average Suicidal Ideation: Denies SI Homicidal Ideation: Denies HI Impulse Control: Unimpaired Insight and Judgment: impaired insight and judgment, Memory: Normal, Attention: Normal, Orientation: Alert, oriented, Assessment and Plan (1) Schizophrenia, paranoid (F20.0) Current Visit: Yes Status: Acute Treatment Plan Increased Risperidone 2mg po BID Risks, benefits and alternatives of medications discussed with the patient, questions answered and consent obtained from patient. PSYCHOTHERAPY: Supportive psychotherapy provided MEDICAL: Per primary team DELIRIUM PRECAUTIONS: Please re-orient patient frequently, keep lights on during the day, and minimize benzodiazepines and opiates as these medications could worsen patient's confusion. 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 Case discussed with Dr. Negron who agrees with current disposition LEGAL STATUS: 1013 FOLLOW-UP: Will follow Thank you for the consult. Please contact with any questions and/or concerns. Mental Status Exam - Vital signs Last Vital Signs Temp 98.4 F 10/14/20 20:54 Pulse 86 10/14/20 20:54 Resp 18 10/14/20 20:54 BP 137/78 10/14/20 20:54 Pulse Ox 99 10/14/20 20:54
[2020-10-15] MEDS ORDERED: risperiDONE 1 MG TAB PO SCH ×2 (10:00→13:00)
[2020-10-15 10:32] VITALS: BP 149/77
[2020-10-15] MEDS ORDERED: clonazePAM 0.5 MG TAB PO SCH (13:00)
[2020-10-15] MEDS: clonazePAM 0.5 MG TAB PO SCH (14:33)
== END 2020-10-15 15:00 ==
LOC: ED 13:39 → EEVIPCON 13:39 → ED 10-15 15:00
DX: F23 Brief psychotic disorder (principal); I10 Essential (primary) hypertension; Z79.899 Other long term (current) drug therapy; Z20.828 Contact with and (suspected) exposure to other viral communicable diseases
CPT/HCPCS: 36415; 80048; 80307; 81001; 82947; 82962; 83036; 84295; 85025; 96360; 96372; 99284; J3486; J7030; Q0177; U0003; 80320; G0480